=== PATIENT | female | born 1975 | race Caucasian/White ===

== ENCOUNTER → 2017-12-27 15:03 | Outpatient (CLI) | payer OTHER, SELFPAY ==
--- NOTE | 2017-12-27 | DI.MG.S_ITS ---
BILATERAL DIGITAL SCREENING MAMMOGRAM 3D/2D WITH CAD: 12/27/2017 CLINICAL: Routine screening. Family history of breast cancer. Comparison is made [facility]. The tissue of both breasts is heterogeneously dense. This may lower the sensitivity of mammography. Current study was also evaluated with a Computer Aided Detection (CAD) system. No significant masses, calcifications, or other findings are seen in either breast. There has been no significant interval change. IMPRESSION: NEGATIVE There is no mammographic evidence of malignancy. A 1 year screening mammogram is recommended. This exam was interpreted at Station ID: [id number]. NOTE: For mammograms, a report in lay terms will be sent to the patient. Approximately 15% of breast malignancies will not be visualized mammographically. In the management of a palpable breast mass, a negative mammogram must not discourage biopsy of a clinically suspicious lesion. Electronically Signed By: Lizabeth rahman/kareen:12/27/2017 16:04:06 letter sent: Normal Exam ACR BI-RADS Category 1: Negative [id number]
== END ==
PROVIDERS: Family Provider Family Medicine; PCP Family Medicine; Visit Provider Family Medicine
DX: Z12.31 Encounter for screening mammogram for malignant neoplasm of breast (principal); Z80.3 Family history of malignant neoplasm of breast
CPT/HCPCS: 77063; 77067

== ENCOUNTER → 2018-07-13 15:03 | Outpatient (CLI) | payer OTHER, SELFPAY ==
--- NOTE | 2018-07-13 | DI.US.S_ITS ---
PROCEDURE: US PELVIC COMPLETE INDICATIONS: HEAVY MENSTRUAL BLEEDING TECHNIQUE: Real-time scanning was performed of the pelvic organs, with image documentation. Additional endovaginal scanning was necessary due to incomplete visualization of the adnexal and endometrial structures by transabdominal scanning. COMPARISON: None. FINDINGS: Transabdominal scanning: Limited scanning through the kidneys shows no hydronephrosis. No pathologic free abdominal or pelvic fluid. Endovaginal scanning: Uterus: Uterus is normal in size at 9.6 x 4.5 x 5.5 cm. The endometrium measures 15 mm in combined thickness. Ovaries: Ovaries normal size measuring 3.4 x 2.1 x 2.8 cm on the right and 4.1 x 1.7 x 2.3 cm on the left. Regressing right physiologic cyst measuring 2.4 cm in multiple small follicular cysts are seen bilaterally. IMPRESSION: 1. Endometrial complex upper limits of normal in thickness. 2. Regressing right physiologic cyst and multiple small follicles present. Dictated by: Peter Collier [facility] Interpreted: Bryce Mccullough MD on 07/13/2018 at 16:33 Approved by: Bryce Mccullough M.D. on 07/13/2018 at 17:18
== END ==
PROVIDERS: Family Provider Family Medicine; PCP Family Medicine; Visit Provider Nurse Practitioner Family
DX: N92.0 Excessive and frequent menstruation with regular cycle (principal); N83.02 Follicular cyst of left ovary; N83.01 Follicular cyst of right ovary; N83.291 Other ovarian cyst, right side
CPT/HCPCS: 76830; 76856

== ENCOUNTER → 2018-10-11 13:39 | Outpatient (CLI) | payer OTHER, SELFPAY ==
--- NOTE | 2018-10-11 | DI.US.S_ITS ---
LIMITED ULTRASOUND OF LEFT BREAST: 10/11/2018 CLINICAL: Diffuse left breast pain. Comparison is made to exams dated: 10/11/2018 mammogram, 12/27/2017 mammogram, and 11/20/2016 mammogram - [facility]. Color flow and real-time ultrasound of the left breast 2 o'clock region were performed. Perea scale images of the real-time examination were reviewed. No abnormalities were seen sonographically in the left breast. IMPRESSION: NEGATIVE There is no sonographic evidence of malignancy. Return to annual mammogram screening schedule is recommended. Findings and recommendations were conveyed to the patient at time of exam. This exam was interpreted at Station ID: [id number]. Electronically Signed By: Angela tejada/:10/11/2018 16:28:56 letter sent: Normal Exam Ultrasound BI-RADS: 1 Negative
--- NOTE | 2018-10-11 | DI.MG.S_ITS ---
UNILATERAL LEFT DIGITAL DIAGNOSTIC MAMMOGRAM 3D/2D: 10/11/2018 CLINICAL: Left breast pain. Comparison is made to exams dated: 12/27/2017 mammogram and 11/20/2016 mammogram - [facility]. The tissue of left breast is heterogeneously dense. This may lower the sensitivity of mammography. No significant masses, calcifications, or other findings are seen in the breast. IMPRESSION: INCOMPLETE: NEEDS ADDITIONAL IMAGING EVALUATION There is no abnormality seen in the left breast to correspond with the pain. There is no mammographic evidence of malignancy. Complete evaluation with ultrasound is recommended. This was performed immediately following this exam. This exam was interpreted at Station ID: [id number]. NOTE: For mammograms, a report in lay terms will be sent to the patient. Approximately 15% of breast malignancies will not be visualized mammographically. In the management of a palpable breast mass, a negative mammogram must not discourage biopsy of a clinically suspicious lesion. Electronically Signed By: Angela tejada/:10/11/2018 16:26:40 ACR BI-RADS Category 0: Incomplete [id number]
== END ==
PROVIDERS: Family Provider Family Medicine; PCP Family Medicine; Visit Provider Nurse Practitioner Family
DX: R92.8 Other abnormal and inconclusive findings on diagnostic imaging of breast (principal); N64.4 Mastodynia
CPT/HCPCS: 76642; 77065; G0279

== ENCOUNTER 2018-12-09 12:53 | Emergency (ER) | payer OTHER, SELFPAY ==
[2018-12-09 13:00] VITALS: BP 172/83; PULSE 73; RESP 11; TEMP 36.7; O2SAT 100
--- NOTE | 2018-12-09 13:04 | ED_ITS ---
HPI - Arrhythmia/Palpitations General Chief Complaint: Chest Pain Stated Complaint: heart racing, blood pressure high Time Seen by Provider: 12/09/18 13:04 Source: patient and family ( and patient's) Mode of arrival: ambulatory Limitations: no limitations History of Present Illness HPI narrative: 43-year-old female comes emergency with complaint of fast heart beat. Patient states she was sitting on the couch, eating nachos and watching TV laying back. She felt like her heart was pounding in her chest like it would almost come out of her chest. She felt lightheaded like the room was spinning and felt cold and clammy. This lasted for a couple minutes she felt like she was almost going to pass out but she did not. Afterwards he felt sort of tired and a little bit woozy. She felt nauseated but did not have any vomiting. She denies any issues with bowel, but no issues with urination. She denies any shortness of breath, no swelling in her lower extremities. She has not had similar symptoms in the past. Patient checked her blood pressure 3 times at she was little hypertensive in the 170s range around 100 diastolic. She does have a history of asthma, rosacea, and eczema. Also states she has been diagnosed with rheumatoid arthritis but does not take medications. She states she had a lot of allergy she has had sinus surgeries and tubal ligation. Denies tobacco, 1 drink of alcohol daily none today, no illicit. Her dad has had an ablation for dysrhythmia and is on medications for atrial fibrillation. Her mom recently had a Holter and was told she had a lot of PVCs. Related Data Home Medications Medication Instructions Recorded Confirmed albuterol sulfate #0 08/19/10 cetirizine 10 mg PO Q DAY #0 10/19/16 etanercept [Enbrel SureClick] 50 mg SQ #0 10/19/16 folic acid 1 mg PO QDAY #0 10/19/16 methotrexate sodium 10 mg PO QWEEK #0 10/19/16 fluticasone propion-salmeterol 1 puff INHALATION DIRECTED 12/09/18 12/09/18 Allergies Allergy/AdvReac Type Severity Reaction Status Date / Time Cefaclor Allergy Severe STOP Uncoded 12/09/18 13:06 BREATHING, I SWELL UP NUTS Allergy Unknown Uncoded 12/09/18 13:06 SEAFOOD Allergy Unknown Uncoded 12/09/18 13:06 Review of Systems Review of Systems ROS Unobtainable: All systems reviewed & are unremarkable except as noted in HPI and below Constitutional Denies chills, Denies fever(s), Denies lethargy and Denies weakness Eyes Denies change in vision Cardiovascular Denies chest pain, Reports diaphoresis, Denies syncope, Reports rapid heart rate, Denies edema, Denies irregular heart rhythm, Reports lightheadedness, Reports palpitations, Denies dyspnea, Denies dyspnea on exertion and Denies orthopnea Respiratory Denies change in phlegm color, Denies chest congestion, Denies cough, Denies dyspnea, Denies dyspnea on exertion and Denies wheezing Gastrointestinal Gastrointestinal: Denies abdominal pain, Denies change in bowel habits, Denies diarrhea, Reports nausea and Denies vomiting Genitourinary Denies hematuria, Denies urinary frequency, Denies dysuria, Denies flank pain, Denies urinary incontinence and Denies urinary urgency Neurologic Denies syncope and Denies weakness Endocrine Reports palpitations Allergic/Immunologic Denies wheezing FOR[facility]LY [facility] Medical History (Updated 12/09/18 @ 13:25 by Parisa Lanza DO) Asthma (Chronic) Eczema (Chronic) Rosacea (Chronic) Surgical History (Updated 12/09/18 @ 13:23 by Parisa Lanza DO) History of sinus surgery (Chronic) Family History (Updated 12/09/18 @ 13:24 by Parisa Lanza DO) Father Atrial fibrillation Mother PVC (premature ventricular contraction) Social History (Updated 12/09/18 @ 13:23 by Parisa Lanza DO) marital status: Smoking Status: Never smoker alcohol intake: current substance use type: does not use Family History (Updated 12/09/18 @ 13:24 by Parisa Lanza DO) Father Atrial fibrillation Mother PVC (premature ventricular contraction) Social History (Updated 12/09/18 @ 13:23 by Parisa Lanza DO) marital status: Smoking Status: Never smoker alcohol intake: current substance use type: does not use Exam Narrative Exam Narrative: GENERAL: Alert and oriented x three, well-nourished, well- appearing female in no acute distress. Patient ambulated into the department into the room. HEENT: Head normocephalic, atraumatic, EOMI, pupils reactive, face symmetric, moist mucous membranes NECK: Supple, full range of motion CARDIOVASCULAR: Regular rate and rhythm without murmurs, rubs or gallops. No JVD. No edema bilateral lower extremities. RESPIRATORY: Breath sounds equal bilaterally, no wheezes rales or rhonchi. ABDOMEN: Soft, nontender. Normoactive bowel sounds all 4 quadrants. No guarding or rebound, rigidity, no mass : No CVA tenderness EXTREMITIES: Normal range of motion, no clubbing or edema. Neurovascularly intact NEUROLOGICAL: Cranial nerves II through XII grossly intact. Moving all extremities SKIN: Warm, dry, no petechiae, no rashes or lesions. Initial Vital Signs Initial Vital Signs: Vital Signs Temperature 98.1 F 12/09/18 13:00 Pulse Rate 73 12/09/18 13:00 Respiratory Rate 11 L 12/09/18 13:00 Blood Pressure 172/83 H 12/09/18 13:00 Pulse Oximetry 100 12/09/18 13:00 Course Orders Ordered: ED Orders 12/09/18 13:09 XR chest 1V Stat 12/09/18 13:25 Basic Metabolic Panel Stat Complete Blood Count AUTO DIFF Stat Magnesium Stat Thyroid Stimulating Hormone Stat Troponin & CK Cardiac Panel Stat 12/09/18 13:45 Partial Thromboplastin Time Stat Prothrombin Time INR Stat 12/09/18 14:46 Urine Drug Screen, Rapid Stat Discontinued Medications Sodium Chloride (Normal Saline 0.9%) 1,000 mls @ 1,000 mls/hr IV BOLUS ONE Stop: 12/09/18 14:08 Last Infusion: 12/09/18 14:57 Dose: 0 mls/hr Admin: 12/09/18 13:42 Dose: 1,000 mls/hr Vital Signs - 8 hr 12/09/18 13:00 12/09/18 14:57 12/09/18 15:03 Temperature 98.1 F Pulse Rate 73 85 68 Respiratory Rate 11 L 16 Blood Pressure 172/83 H 163/83 H Blood Pressure [Left Arm] 163/83 H Pulse Oximetry 100 98 99 MDM - Arrhythmia/Palpitations Lab Data Attestation: I reviewed the patient's lab results. Result diagrams: 12/09/18 13:25 12/09/18 13:25 Lab Results 12/09/18 12/09/18 12/09/18 Range/Units 13:25 13:25 13:25 WBC 9.0 (4.5-11.0) X10^3/uL RBC 4.43 (4.0-5.2) X10^6/uL Hgb 14.1 (12.0-16.0) g/dL Hct 40.1 (36-46) % MCV 90.5 (80-100) fL MCH 31.8 (26-34) PG MCHC 35.1 (30-36) % RDW 13.3 (11.6-14.8) % Plt Count 281 (150-400) X10^3/uL Neut % (Auto) 71.7 (50-75) % Lymph % (Auto) 14.9 L (25-40) % Bonner % (Auto) 7.0 (3-14) % Eos % (Auto) 5.8 H (2-4) % Baso % (Auto) 0.6 (0-2) % Neut # (Auto) 6500 (6095-6327) /uL Lymph # (Auto) 1300 (1640-8082) /uL Bonner # (Auto) 600 (0-900) /uL Eos # (Auto) 500 H (0-450) /uL Baso # (Auto) 100 (0-100) /uL PT (10.1-12.7) SECONDS INR (0.9-1.3) APTT (26.4-36.2) SECONDS Sodium 139 (137-145) mmol/L Potassium 3.8 (3.4-5.1) mmol/L Chloride 101 (98-107) mmol/L Carbon Dioxide 27 (22-32) mmol/L BUN 11 (7-17) mg/dL Creatinine 0.80 (0.52-1.04) mg/dL Estimated GFR > 60.0 (>60) mL/min BUN/Creatinine Ratio 13.8 (6-22) Glucose 172 H (70-100) mg/dL Calcium 9.4 (8.4-10.2) mg/dL Magnesium 2.0 (1.6-2.3) mg/dL Total Creatine Kinase 79 (30-135) U/L CK-MB (CK-2) TNP CK-MB (CK-2) Rel Index TNP Troponin I < 0.012 (0.01-0.034) ng/mL TSH 1.43 (0.47-4.68) uIU/mL Urine Opiates Screen (Negative) Ur Oxycodone Screen (Negative) Urine Methadone Screen (Negative) Ur Barbiturates Screen (Negative) U Tricyclic Antidepress (Negative) Ur Phencyclidine Scrn (Negative) Ur Amphetamines Screen (Negative) U Methamphetamines Scrn (Negative) Ur MDMA Scrn (Ecstasy) (Negative) U Benzodiazepines Scrn (Negative) Urine Cocaine Screen (Negative) U Marijuana (THC) Screen (Negative) 12/09/18 12/09/18 Range/Units 13:45 14:46 WBC (4.5-11.0) X10^3/uL RBC (4.0-5.2) X10^6/uL Hgb (12.0-16.0) g/dL Hct (36-46) % MCV (80-100) fL MCH (26-34) PG MCHC (30-36) % RDW (11.6-14.8) % Plt Count (150-400) X10^3/uL Neut % (Auto) (50-75) % Lymph % (Auto) (25-40) % Bonner % (Auto) (3-14) % Eos % (Auto) (2-4) % Baso % (Auto) (0-2) % Neut # (Auto) (7885-1510) /uL Lymph # (Auto) (9748-0326) /uL Bonner # (Auto) (0-900) /uL Eos # (Auto) (0-450) /uL Baso # (Auto) (0-100) /uL PT 10.8 (10.1-12.7) SECONDS INR 0.9 (0.9-1.3) APTT 35 (26.4-36.2) SECONDS Sodium (137-145) mmol/L Potassium (3.4-5.1) mmol/L Chloride (98-107) mmol/L Carbon Dioxide (22-32) mmol/L BUN (7-17) mg/dL Creatinine (0.52-1.04) mg/dL Estimated GFR (>60) mL/min BUN/Creatinine Ratio (6-22) Glucose (70-100) mg/dL Calcium (8.4-10.2) mg/dL Magnesium (1.6-2.3) mg/dL Total Creatine Kinase (30-135) U/L CK-MB (CK-2) CK-MB (CK-2) Rel Index Troponin I (0.01-0.034) ng/mL TSH (0.47-4.68) uIU/mL Urine Opiates Screen Negative (Negative) Ur Oxycodone Screen Negative (Negative) Urine Methadone Screen Negative (Negative) Ur Barbiturates Screen Negative (Negative) U Tricyclic Antidepress Negative (Negative) Ur Phencyclidine Scrn Negative (Negative) Ur Amphetamines Screen Negative (Negative) U Methamphetamines Scrn Negative (Negative) Ur MDMA Scrn (Ecstasy) Negative (Negative) U Benzodiazepines Scrn Negative (Negative) Urine Cocaine Screen Negative (Negative) U Marijuana (THC) Screen Negative (Negative) Point of Care Testing Test Results Negative Urine Dip Bedside Urine Glucose 100 mg/dl Bedside Urine Bilirubin - Negative Bedside Urine Ketone - Negative Urine Specific [place] 1.010 Bedside Urine Occult Blood +++ Bedside Urine pH 6.0 Bedside Urine Protein - Negative Bedside Urine Urobilinogen - Negative Bedside Urine Nitrite - Negative Imaging Data Chest x-ray: Radiologist's impression: [address] [id number] XRay Report Signed Patient: Eva Salinas [facility]#: [id number] : 1975Acct:[id number] Age/Sex: 43 / FDate of Service: 12/09/18 Loc: ED Accession Number: [id number] Procedure: XR chest 1V Ordering Provider: Parisa Lanza D.O. PROCEDURE: XR CHEST 1V INDICATIONS: fast heart beat, high bp TECHNIQUE: One view of the chest was acquired. COMPARISON: [facility], , CHEST 2 VIEW, 08/08/2012, 16:48. FINDINGS: Surgical changes and devices: None. Lungs and pleura: Lungs are clear. No pleural effusions or pneumothorax. Mediastinum: Mediastinal contours appear normal. Heart size is normal. Bones and chest wall: No suspicious bony lesions. Overlying soft tissues appear unremarkable. IMPRESSION: Stable chest. No acute cardiopulmonary process is evident. Dictated by: Vladimir Rodriguez M.D. on 12/09/2018 at 12:57 Approved by: Vladimir Rodriguez M.D. on 12/09/2018 at 12:59 ECG Data Attestation: I personally reviewed and interpreted this ECG as follows: Prior ECG tracings: not available for review Interpretation: Sinus a rate of 76 NE 164 QRS of 114 and QTC of 443. No ST changes appreciated patient does appear to have incomplete right bundle branch block MDM Narrative Medical decision making narrative: Patient had episode of elevated heart rate per history. No signs of cardiac arrhythmias here, lab work does not show any abnormalities that are suspicious. Patient's chest x-ray does not show any major changes. She is little hypertensive but she has been normotensive in the past. We discussed she can keep a diary and follow up with her physician. They can talk about doing a Holter monitor ZIO patch and discuss if she needs blood pressure medications. Patient feels comfortable with this plan she does have a significant history with both parent having some cardiac arrhythmia. Discharge Plan Departure Patient Disposition: Home Clinical Impression: Palpitations Discharge Date/Time: 12/09/18 15:04 Interventions: ED Discharge Assessment Last Done: 12/09/18 15:03 Instructions: DI for Palpitations Activity Restrictions/Additional Instructions: Follow-up with your primary care physician in the next 2-3 days for recheck call for an appointment on Wednesday. Discussed with your physician if a Holter monitor would be appropriate. You may continue home medications as prescribed. Return to the emergency department for new or worsening symptoms Return to the emergency department for new or worsening symptoms, fevers greater 100.4 F, passing out, prolonged episodes of palpitations, lightheadedness, sweating, chest pain or shortness of breath, nausea or vomiting, new swelling in her lower extremities or other new or concerning symptoms. Prescriptions: No Action albuterol sulfate 2.5 MG/3 ML solution for nebulization Qty: 0 RF: 0 methotrexate sodium 2.5 MG tablet 10 mg PO QWEEK Qty: 0 RF: 0 folic acid 1 MG tablet 1 mg PO QDAY Qty: 0 RF: 0 etanercept [Enbrel SureClick] 50 MG/1 ML pen injector 50 mg SQ Qty: 0 RF: 0 cetirizine 10 MG tablet 10 mg PO Q DAY Qty: 0 RF: 0 fluticasone propion-salmeterol 500-50 mcg/dose blister with device 1 puff inhalation DIRECTED RF: 0 Referrals: Thierno Flores MD [Primary Care Provider] -
--- NOTE | 2018-12-09 13:07 | PC.NURSE ---
Geraldo reports sudden onset of racing heart, flushed and felt like I was going to pass out Patient states it lasted about five minutes. Left her feeling tired. Patient Denies chest pain or SOB at this time.
--- NOTE | 2018-12-09 13:09 | DI.RAD.S_ITS ---
PROCEDURE: XR CHEST 1V INDICATIONS: fast heart beat, high bp TECHNIQUE: One view of the chest was acquired. COMPARISON: [facility], , CHEST 2 VIEW, 08/08/2012, 16:48. FINDINGS: Surgical changes and devices: None. Lungs and pleura: Lungs are clear. No pleural effusions or pneumothorax. Mediastinum: Mediastinal contours appear normal. Heart size is normal. Bones and chest wall: No suspicious bony lesions. Overlying soft tissues appear unremarkable. IMPRESSION: Stable chest. No acute cardiopulmonary process is evident. Dictated by: Vladimir Rodriguez M.D. on 12/09/2018 at 12:57 Approved by: Vladimir Rodriguez M.D. on 12/09/2018 at 12:59
[2018-12-09 13:32] LABS: Add Manual Diff / Slide Review NO; Basophils Absolute Auto 100 /uL (0-100); Basophils Percent Auto 0.6 % (0-2); Eosinophils Absolute Auto 500 /uL (0-450); Eosinophils Percent Auto 5.8 % (2-4); Hematocrit 40.1 % (36-46); Hemoglobin 14.1 g/dL (12.0-16.0); Lymphocytes Absolute Auto 1300 /uL (1100-4500); Lymphocytes Percent Auto 14.9 % (25-40); Mean Corpuscular HGB Conc 35.1 % (30-36); Mean Corpuscular Hemoglobin 31.8 PG (26-34); Mean Corpuscular Volume 90.5 fL (80-100); Monocytes Absolute Auto 600 /uL (0-900); Neutrophils Absolute Auto 6500 /uL (1500-7000); Neutrophils Percent Auto 71.7 % (50-75); Platelet Count 281 X10^3/uL (150-400); Red Blood Cell Count 4.43 X10^6/uL (4.0-5.2); Red Cell Distribution Width 13.3 % (11.6-14.8)
[2018-12-09 13:42] LABS: HEMOLYSIS < 15 (0-50); Potassium 3.8 mmol/L (3.4-5.1)
[2018-12-09] MEDS: SODIUM CHLORIDE 0.9% 1,000 ML 1000 ML IV (13:42)
[2018-12-09 13:45] LABS: BUN Creatinine Ratio 13.8 (6-22); Blood Urea Nitrogen 11 mg/dL (7-17); Calcium 9.4 mg/dL (8.4-10.2); Carbon Dioxide 27 mmol/L (22-32); Chloride 101 mmol/L (98-107); Creatine Kinase 79 U/L (30-135); Estimated Glomerular Filt Rate > 60.0 mL/min (>60); Glucose 172 mg/dL (70-100); Sodium 139 mmol/L (137-145)
[2018-12-09 13:56] LABS: Troponin I < 0.012 ng/mL (0.01-0.034)
[2018-12-09 14:00] LABS: INR 0.9 (0.9-1.3); Prothrombin Time 10.8 SECONDS (10.1-12.7)
[2018-12-09 14:03] LABS: PTT Partial Thromboplastin Tim 35 SECONDS (26.4-36.2)
[2018-12-09 14:21] LABS: Thyroid Stimulating Hormone 1.43 uIU/mL (0.47-4.68)
[2018-12-09 14:57] VITALS: BP 163/83; PULSE 85; RESP 16; O2SAT 98
[2018-12-09 15:03] VITALS: BP 163/83; PULSE 68; O2SAT 99
[2018-12-09 15:08] LABS: Urine Amphetamines Negative (Negative); Urine Barbiturates Negative (Negative); Urine Benzodiazepines Negative (Negative); Urine Cocaine Negative (Negative); Urine MDMA Negative (Negative); Urine Methadone Negative (Negative); Urine Methamphetamines Negative (Negative); Urine Morphine/Opi cutoff 2000 Negative (Negative); Urine Oxycodone Negative (Negative); Urine Phencyclidine Negative (Negative); Urine Tetrahydrocannabinol Negative (Negative); Urine Tricyclic Antidepressant Negative (Negative)
== END 2018-12-09 15:04 | disposition home or self-care (01) ==
PROVIDERS: Emergency Provider Emergency Medicine; Family Provider Family Medicine; PCP Family Medicine
DX: R00.2 Palpitations (principal)
CPT/HCPCS: 36415; 36591; 71045; 80048; 80305; 81003; 81025; 82550; 83735; 84443; 84484; 85025; 85610; 85730; 93005; 96360; 99283; 99285

== ENCOUNTER → 2019-01-26 15:07 | Outpatient (CLI) | payer OTHER, SELFPAY ==
--- NOTE | 2019-02-17 16:01 | P.HOLT.S_ITS ---
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 No etiology for palpitations identified on this study
== END ==
PROVIDERS: Family Provider Family Medicine; PCP Family Medicine; Visit Provider Family Medicine
DX: R00.2 Palpitations (principal)
CPT/HCPCS: 0296T; 0298T

== ENCOUNTER 2020-03-07 15:37 | Emergency (ER) | payer OTHER, SELFPAY ==
[2020-03-07 15:40] VITALS: BP 231/112; PULSE 92; RESP 14; TEMP 36.6; O2SAT 99; BMI 31.0
--- NOTE | 2020-03-07 15:59 | DI.CT.S_ITS ---
PROCEDURE: CT HEAD/BRAIN WO CON INDICATIONS: head injury TECHNIQUE: Noncontrast 4.5 mm thick angled axial sections acquired from the foramen magnum to the vertex, with coronal and sagittal reformats. For radiation dose reduction, the following was used: automated exposure control, adjustment of mA and/or kV according to patient size. COMPARISON: [facility], CT, HEAD WITHOUT CONTRAST, 07/10/2013, 15:50. [facility], CT, HEAD WITHOUT CONTRAST, 01/07/2012, 11:29. FINDINGS: Image quality: Excellent. CSF spaces: Basal cisterns are patent. No extra-axial fluid collections. Ventricles are normal in size and shape. Brain: No midline shift. No intracranial masses or hemorrhage. Perea-white matter interface is normal. Skull and face: Calvarium and visualized facial bones are intact, without suspicious lesions. Sinuses: Prior paranasal sinus surgery is seen, with at least right-sided antrectomy. Mild mucosal thickening is seen within the ethmoid air cells. No abnormal fluid is seen within the mastoid air cells. IMPRESSION: No acute intracranial hemorrhage is seen. No acute intracranial process is seen. Paranasal sinus disease and prior paranasal sinus surgery. Dictated by: Charles Sands M.D. on 03/07/2020 at 15:22 Approved by: Charles Sands M.D. on 03/07/2020 at 15:23
[2020-03-07] MEDS: ONDANSETRON 4 MG ODT SL (18:31)
[2020-03-07] MEDS: KETOROLAC 60 MG/2 ML VIAL 30 MG IM (18:32)
[2020-03-07 18:48] VITALS: BP 154/87; PULSE 67; RESP 16; O2SAT 98
--- NOTE | 2020-03-07 19:03 | ED.HEATRA ---
HPI - Head Injury <LEVI Powers - Last Filed: 03/07/20 19:28> General Chief complaint: Head Injury Stated complaint: hit head Wednesday, blurry vision now Time Seen by Provider: 03/07/20 18:08 Source: patient Mode of arrival: Ambulatory Limitations: no limitations History of Present Illness HPI Narrative: The patient is a 44-year-old female nonsmoker with history of asthma who presents with a chief complaint of hitting her head on Wednesday on the chawla of her vehicle. She was helping her older dog get in and out of the car. She denied loss of consciousness, does not take any blood thinners. She has had headaches, blurry vision and nausea off and on. It is worsened by working on the computer. 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 She tried to get in with primary care provider office, though is unable to do so. She denies any numbness or tingling. Related Data Home Medications Medication Instructions Recorded Confirmed albuterol sulfate #0 08/19/10 01/12/19 cetirizine 10 mg PO Q DAY #0 10/19/16 01/12/19 etanercept [Enbrel SureClick] 50 mg SQ #0 10/19/16 01/12/19 folic acid 1 mg PO QDAY #0 10/19/16 01/12/19 methotrexate sodium 10 mg PO QWEEK #0 10/19/16 01/12/19 fluticasone propion-salmeterol 1 puff INHALATION DIRECTED 12/09/18 01/12/19 Previous Rx's Medication Instructions Recorded ketorolac 10 mg PO TID PRN #10 tab 03/07/20 ondansetron 4 mg PO Q6H PRN #14 tab 03/07/20 Allergies Allergy/AdvReac Type Severity Reaction Status Date / Time Cefaclor Allergy Severe STOP Uncoded 03/07/20 15:42 BREATHING, I SWELL UP NUTS Allergy Unknown Uncoded 03/07/20 15:42 SEAFOOD Allergy Unknown Uncoded 03/07/20 15:42 Review of Systems <LEVI Powers - Last Filed: 03/07/20 19:28> Review of Systems Narrative: GENERAL: Denies chills, fatigue, malaise, fever, sweats. HEENT: Denies sinus pain, ear pain, sore throat, difficulty swallowing, dizziness. RESPIRATORY: Denies dyspnea, cough, wheezing, hemoptysis, sputum. CARDIOVASCULAR: Denies chest pain, palpitations, orthopnea, edema, GASTROINTESTINAL: Denies nausea, vomiting, abdominal pain, diarrhea, constipation, melena. : Denies dysuria, frequency, incontinence, hematuria, urinary retention. MUSCULOSKELETAL: denies weakness, joint pain, or bony pain SKIN: Denies rash, skin lesions, or other NEUROLOGIC: See HPI PSYCHIATRIC: No concerning psychosocial issues. 12 point review of systems is negative except for those stated above Patient History <LEVI Powers - Last Filed: 03/07/20 19:28> Medical History Asthma Eczema Rosacea Surgical History History of sinus surgery Family History Father Atrial fibrillation Mother PVC (premature ventricular contraction) Social History marital status: Smoking Status: Never smoker alcohol intake: current substance use type: does not use Smoking Status: Never smoker alcohol intake frequency: holidays/special occasions only Substance Use Type: does not use Exam <LEVI Powers - Last Filed: 03/07/20 19:28> Narrative Exam Narrative: GENERAL: This is a well-nourished, well-developed patient, slightly teary HEAD: Atraumatic. Normocephalic. No temporal or scalp tenderness. EYES: Pupils equal round and reactive. Extraocular motions intact. No scleral icterus. No injection or drainage. ENT: Nose without bleeding, purulent drainage or septal hematoma. Throat without erythema, tonsillar hypertrophy or exudate. Uvula midline. Airway patent. NECK: Trachea midline. No JVD or lymphadenopathy. Supple, nontender, no meningeal signs. CARDIOVASCULAR: Regular rate and rhythm RESPIRATORY: Clear to auscultation. Breath sounds equal bilaterally. No wheezes, rales, or rhonchi. No cough. No increased respiratory effort. No accessory muscle use. GASTROINTESTINAL: Abdomen soft, non-tender, nondistended. No hepato-splenomegaly, or palpable masses. No guarding. EXTREMITIES: No clubbing, cyanosis, or edema. No joint tenderness, effusion, or edema noted. BACK: Nontender without deformity or crepitance. No flank tenderness. NEURO: AOx3. Stable gait. Using all extremities equally. No gross cranial nerve deficit. SKIN: No rash or erythema on visible skin Initial Vital Signs Initial Vital Signs: Vital Signs Temperature 97.9 F 03/07/20 15:40 Pulse Rate 92 H 03/07/20 15:40 Respiratory Rate 14 03/07/20 15:40 Blood Pressure 231/112 H 03/07/20 15:40 Pulse Oximetry 99 03/07/20 15:40 <Kallie Painter DO - Last Filed: 03/08/20 07:25> Initial Vital Signs Initial Vital Signs: Vital Signs Temperature 97.9 F 03/07/20 15:40 Pulse Rate 92 H 03/07/20 15:40 Respiratory Rate 14 03/07/20 15:40 Blood Pressure 231/112 H 03/07/20 15:40 Pulse Oximetry 99 03/07/20 15:40 Scores <LEVI Powers - Last Filed: 03/07/20 19:28> GCS Aleksey coma scale eye opening: Spontaneous Aleksey coma scale verbal response: Orientated [place] coma scale motor response: Obey commands [place] coma scale total score: 15 Nexus Score for C-Spine Focal Neurologic deficit present: No Midline spinal tenderness present: No Altered level of conciousness present: No Intoxication present: No Distracting Injury Present: No Nexus Criteria for C-spine: 0 Course <LEVI Powers - Last Filed: 03/07/20 19:28> Orders Ordered: Discontinued Medications Ketorolac Tromethamine (Ketorolac 60 Mg/2 Ml Vial) 30 mg IM NOW ONE Stop: 03/07/20 18:22 Last Admin: 03/07/20 18:32 Dose: 30 mg Documented by: ENRIQUER Ondansetron HCl (Ondansetron 4 Mg Odt) 4 mg SL NOW ONE Stop: 03/07/20 18:22 Last Admin: 03/07/20 18:31 Dose: 4 mg Documented by: MMINOR Vital Signs Vital signs: Vital Signs - 8 hr 03/07/20 15:40 03/07/20 18:48 03/07/20 19:13 Temperature 97.9 F Pulse Rate 92 H 67 70 Respiratory Rate 14 16 18 Blood Pressure 231/112 H 154/87 H 142/81 H Pulse Oximetry 99 98 96 <Kallie Painter DO - Last Filed: 03/08/20 07:25> Orders Ordered: Discontinued Medications Ketorolac Tromethamine (Ketorolac 60 Mg/2 Ml Vial) 30 mg IM NOW ONE Stop: 03/07/20 18:22 Last Admin: 03/07/20 18:32 Dose: 30 mg Documented by: MMINOR Ondansetron HCl (Ondansetron 4 Mg Odt) 4 mg SL NOW ONE Stop: 03/07/20 18:22 Last Admin: 03/07/20 18:31 Dose: 4 mg Documented by: MMINOR Vital Signs Vital signs: Vital Signs - 8 hr 03/07/20 15:40 03/07/20 18:48 03/07/20 19:13 Temperature 97.9 F Pulse Rate 92 H 67 70 Respiratory Rate 14 16 18 Blood Pressure 231/112 H 154/87 H 142/81 H Pulse Oximetry 99 98 96 MDM - Head Injury <LEVI Powers - Last Filed: 03/07/20 19:28> Imaging Data CT scan - head: Radiologist's Impression: [facility] [address] [place] [id number] Scan ReportSigned Patient: Eva Salinas AMR#: [id number]: 1975Acct:[id number]/Sex: 44 / FDate of Service: 03/07/20Loc: EDAccession Number: [id number] Procedure: CT head/brain wo con Ordering Provider: Kallie Painter D.O. PROCEDURE: CT HEAD/BRAIN WO CON INDICATIONS: head injury TECHNIQUE: Noncontrast 4.5 mm thick angled axial sections acquired from the foramen magnum to the vertex, with coronal and sagittal reformats. For radiation dose reduction, the following was used: automated exposure control, adjustment of mA and/or kV according to patient size. COMPARISON: [facility], CT, HEAD WITHOUT CONTRAST, 07/10/2013, 15:50. [facility], CT, HEAD WITHOUT CONTRAST, 01/07/2012, 11:29. FINDINGS: Image quality: Excellent. CSF spaces: Basal cisterns are patent. No extra-axial fluid collections. Ventricles are normal in size and shape. Brain: No midline shift. No intracranial masses or hemorrhage. Perea-white matter interface is normal. Skull and face: Calvarium and visualized facial bones are intact, without suspicious lesions. Sinuses: Prior paranasal sinus surgery is seen, with at least right-sided antrectomy. Mild mucosal thickening is seen within the ethmoid air cells. No abnormal fluid is seen within the mastoid air cells. IMPRESSION: No acute intracranial hemorrhage is seen. No acute intracranial process is seen. Paranasal sinus disease and prior paranasal sinus surgery. Dictated by: Charles Sands M.D. on 03/07/2020 at 15:22 MDM Narrative Medical decision making narrative: The patient is a 44-year-old female who presents hitting her head several days ago with post concussive symptoms. Her head CT is acute if it for head CT is negative. I believe she is having postconcussive syndrome. She felt much improved after Toradol and Zofran. I discussed at length follow up with primary care provider in the next few days. Discussed brain rest, not using computer for profuse amounts of time, coming back to the ER for acute concerns. Patient was given reap packet. Patient has no questions or concerns upon discharge and states understanding return precautions as well as follow-up care. I did provide a work note. Discharge Plan Departure Patient Disposition: Home Clinical Impression: Post concussive syndrome Concussion without loss of consciousness Qualifiers: Encounter type: initial encounter Qualified Code(s): S06.0X0A - Concussion without loss of consciousness, initial encounter Instructions: DI for Concussion, True or False: A Person With a Serious Head Injury or Concussion Should Be , DI for Postconcussion Syndrome, The Cumulative Effects of Concussions Activity Restrictions/Additional Instructions: Thank you for trusting us with your care today. As discussed, your head CT came back with no acute findings. Please rest over the next few days. I have given you a work note. Please follow-up with primary care provider in the next few days. I have given you 2 prescriptions which is sent to [facility], 1 for nausea and 1 for pain. I have given you a prescription of Toradol. This is an NSAID. Do not combine it with other NSAIDs such as Aleve or ibuprofen. I suggest taking it with some food, as it can irritate your stomach. I have also given a prescription of ondansetron for nausea, be aware that this can be constipating. As discussed please take it easy and rest. Please come back to the emergency department for any acute concerns. Prescriptions: New ondansetron 4 mg tablet,disintegrating 4 mg PO Q6H PRN (Reason: nausea and vomiting) Qty: 14 RF: 0 ketorolac 10 mg tablet 10 mg PO TID PRN (Reason: pain) Qty: 10 RF: 0 No Action albuterol sulfate 2.5 MG/3 ML solution for nebulization Qty: 0 RF: 0 methotrexate sodium 2.5 MG tablet 10 mg PO QWEEK Qty: 0 RF: 0 folic acid 1 MG tablet 1 mg PO QDAY Qty: 0 RF: 0 etanercept [Enbrel SureClick] 50 MG/1 ML pen injector 50 mg SQ Qty: 0 RF: 0 cetirizine 10 MG tablet 10 mg PO Q DAY Qty: 0 RF: 0 fluticasone propion-salmeterol 500-50 mcg/dose blister with device 1 puff inhalation DIRECTED RF: 0 Referrals: [facility] [Outside] Stand Alone Forms: Work Release Note <Kallie Painter DO - Last Filed: 03/08/20 07:25> [facility] ED Attending Terra Attestation: I was immediately available in the department for consultation. Documentation has been reviewed. I agree with assessment and plan.
[2020-03-07 19:13] VITALS: BP 142/81; PULSE 70; RESP 18; O2SAT 96
== END 2020-03-07 19:13 | disposition home or self-care (01) ==
PROVIDERS: Emergency Provider Nurse Practitioner Family; Family Provider Family Medicine
DX: S06.0X0A Concussion without loss of consciousness, initial encounter (principal); H53.8 Other visual disturbances
CPT/HCPCS: 70450; 96372; 99281; 99284; STOP; J1885

== ENCOUNTER → 2020-05-07 16:14 | Outpatient (CLI) | payer OTHER, SELFPAY ==
--- NOTE | 2020-05-07 16:18 | DI.RAD.S_ITS ---
PROCEDURE: XR SHOULDER LT MIN 2V INDICATIONS: UNSPECIFIED LEFT SHOULDER PAIN TECHNIQUE: 3 views of the shoulder were acquired. COMPARISON: None. FINDINGS: Bones: No fractures or dislocations. No suspicious bony lesions. Visualized ribs appear intact. Soft tissues: No suspicious soft tissue calcifications. IMPRESSION: No definite radiographic abnormality. If pain persists with conservative management, consider cross sectional imaging such as CT or MRI for further assessment. Dictated by: [facility] Interpreted: Sofi Nash MD on 05/07/2020 at 16:53 Approved by: Sofi Nash M.D. on 05/07/2020 at 17:05
== END ==
PROVIDERS: Referring Provider Nurse Practitioner Family; Visit Provider Nurse Practitioner Family
DX: M25.512 Pain in left shoulder (principal)
CPT/HCPCS: 73030

== ENCOUNTER → 2021-06-24 15:12 | Outpatient (CLI) | payer OTHER, SELFPAY ==
--- NOTE | 2021-06-24 15:14 | DI.MG.S_ITS ---
BILATERAL DIGITAL SCREENING MAMMOGRAM 3D/2D WITH CAD: 06/24/2021 CLINICAL: Routine screening. Family history of breast cancer. Comparison is made to exams dated: 10/11/2018 mammogram, 12/27/2017 mammogram, and 11/20/2016 mammogram - [facility]. The tissue of both breasts is heterogeneously dense. This may lower the sensitivity of mammography. Current study was also evaluated with a Computer Aided Detection (CAD) system. No significant masses, calcifications, or other findings are seen in either breast. There has been no significant interval change. IMPRESSION: NEGATIVE There is no mammographic evidence of malignancy. A 1 year screening mammogram is recommended. This exam was interpreted at Station ID: [id number]. NOTE: For mammograms, a report in lay terms will be sent to the patient. Approximately 15% of breast malignancies will not be visualized mammographically. In the management of a palpable breast mass, a negative mammogram must not discourage biopsy of a clinically suspicious lesion. Electronically Signed By: Angela tejada/kareen:06/25/2021 08:49:40 letter sent: Normal Exam ACR BI-RADS Category 1: Negative 3341F
== END ==
PROVIDERS: PCP Internal Medicine; Referring Provider Internal Medicine; Visit Provider Internal Medicine
DX: Z12.31 Encounter for screening mammogram for malignant neoplasm of breast (principal); Z80.3 Family history of malignant neoplasm of breast
CPT/HCPCS: 77063; 77067

== ENCOUNTER → 2022-11-11 13:48 | Outpatient (CLI) | payer OTHER, SELFPAY ==
--- NOTE | 2022-11-11 13:49 | DI.MG.S_ITS ---
BILATERAL DIGITAL SCREENING MAMMOGRAM 3D/2D WITH CAD: 11/11/2022 CLINICAL: Routine screening. Family history of breast cancer. Comparison is made to exams dated: 06/24/2021 mammogram, 10/11/2018 mammogram, and 12/27/2017 mammogram - [facility]. Both breasts are heterogeneously dense, which may obscure small masses (category c / 51-75% glandular tissue). Current study was also evaluated with a Computer Aided Detection (CAD) system. No significant masses, calcifications, or other findings are seen in either breast. There has been no significant interval change. IMPRESSION: NEGATIVE There is no mammographic evidence of malignancy. A 1 year screening mammogram is recommended. Based on the Tyrer Cuzick model (a risk assessment model) the patient's lifetime risk is 13.2% and her 10 year risk is 2.6%. According to the ACR, ACS, and NCCN guidelines, an annual breast MRI exam along with mammogram is recommended if the patient's lifetime risk is 20% or greater. This exam was interpreted at Station ID: [id number]. NOTE: For mammograms, a report in lay terms will be sent to the patient. Approximately 15% of breast malignancies will not be visualized mammographically. In the management of a palpable breast mass, a negative mammogram must not discourage biopsy of a clinically suspicious lesion. Electronically Signed By: Jacky tavarez/kareen:11/11/2022 15:15:40 letter sent: Normal Exam ACR BI-RADS Category 1: Negative 3341F
== END ==
PROVIDERS: PCP Internal Medicine; Referring Provider Internal Medicine; Visit Provider Internal Medicine
DX: Z12.31 Encounter for screening mammogram for malignant neoplasm of breast (principal); Z80.3 Family history of malignant neoplasm of breast
CPT/HCPCS: 77063; 77067

== ENCOUNTER → 2023-12-01 14:09 | Outpatient (CLI) | payer OTHER, SELFPAY ==
--- NOTE | 2023-12-01 14:12 | DI.MG.S_ITS ---
BILATERAL DIGITAL SCREENING MAMMOGRAM 3D/2D WITH CAD: 12/01/2023 CLINICAL: Routine screening. Family history of breast cancer. Comparison is made to exams dated: 11/11/2022 mammogram, 06/24/2021 mammogram, and 12/27/2017 mammogram - [facility]. Both breasts are heterogeneously dense, which may obscure small masses (category c / 51-75% glandular tissue). Current study was also evaluated with a Computer Aided Detection (CAD) system. No significant masses, calcifications, or other findings are seen in either breast. There has been no significant interval change. IMPRESSION: NEGATIVE There is no mammographic evidence of malignancy. A 1 year screening mammogram is recommended. Based on the Tyrer Cuzick model (a risk assessment model) the patient's lifetime risk is 13.1% and her 10 year risk is 2.7%. According to the ACR, ACS, and NCCN guidelines, an annual breast MRI exam along with mammogram is recommended if the patient's lifetime risk is 20% or greater. This exam was interpreted at Station ID: [id number]. NOTE: For mammograms, a report in lay terms will be sent to the patient. Approximately 15% of breast malignancies will not be visualized mammographically. In the management of a palpable breast mass, a negative mammogram must not discourage biopsy of a clinically suspicious lesion. Electronically Signed By: Anglea tejada/kareen:12/01/2023 17:03:08 letter sent: Normal Exam ACR BI-RADS Category 1: Negative 3341F
== END ==
LOC: MAMMO 14:11
PROVIDERS: PCP Internal Medicine; Referring Provider Internal Medicine; Visit Provider Internal Medicine
DX: Z12.31 Encounter for screening mammogram for malignant neoplasm of breast (principal); Z80.3 Family history of malignant neoplasm of breast; R92.333 Mammographic heterogeneous density, bilateral breasts
CPT/HCPCS: 77063; 77067

== ENCOUNTER → 2023-12-29 15:11 | Outpatient (CLI) | payer OTHER, SELFPAY ==
--- NOTE | 2023-12-29 | DI.RAD.S_ITS ---
PROCEDURE: XR FOOT LT MIN 3V INDICATIONS: left foot pain TECHNIQUE: 3 views of the foot were acquired. COMPARISON: None. FINDINGS: Bones: There are no focal osseous abnormalities. Mild pes planus noted. Joints: The joint spaces are normal in width and alignment without arthritic change. Soft tissues: No soft tissue abnormality. IMPRESSION: Mild pes planus Dictated by: Jairo Erazo M.D. on 12/30/2023 at 13:29 Approved by: Jairo Erazo M.D. on 12/30/2023 at 13:29
== END ==
PROVIDERS: PCP Internal Medicine; Referring Provider Internal Medicine; Visit Provider Internal Medicine
DX: M21.42 Flat foot [pes planus] (acquired), left foot (principal); M79.672 Pain in left foot
CPT/HCPCS: 73630

== ENCOUNTER → 2025-01-04 15:19 | Outpatient (CLI) | payer OTHER, SELFPAY ==
--- NOTE | 2025-01-04 15:23 | EKG_ITS ---
[place] [id number] [address] [place] [id number] Test Date: 2025-01-04 Pat Name: Eva Villalba Department: [facility] Room: Gender: Female Eap Specialist: HEATHER : 1975 Requested By: Order Number: [id number] Reading MD: Jairo Parks MD Measurements Intervals Vernon Rate: 69 P: 77 FL: 166 QRS: 24 QRSD: 98 T: 55 QT: 402 QTc: 430 Interpretive Statements Normal sinus rhythm Possible Left atrial enlargement Incomplete right bundle branch block Septal infarct , age undetermined NO SIGNIFICANT CHANGE FROM PRIOR TRACING Electronically Signed On 01-05-2025 7:37:07 PDT by Jairo Parks MD
== END ==
PROVIDERS: PCP Internal Medicine; Referring Provider Internal Medicine; Visit Provider Internal Medicine Gastroenterology
DX: G89.18 Other acute postprocedural pain (principal)
CPT/HCPCS: 93005

== ENCOUNTER → 2025-01-08 15:49 | Outpatient (CLI) | payer OTHER, SELFPAY ==
[2025-01-08 16:40] LABS: Add Manual Diff / Slide Review NO; Hematocrit 37.7 % (36-46); Hemoglobin 13.3 g/dL (12.0-16.0); Lymphocytes Absolute Auto 2000 /uL (1100-4500); Mean Corpuscular HGB Conc 35.2 % (30-36); Mean Corpuscular Hemoglobin 32.5 PG (26-34); Mean Corpuscular Volume 92.3 fL (80-100); Platelet Count 300 X10^3/uL (150-400)
[2025-01-08 17:12] LABS: Alanine Aminotransferase 45 IU/L (<35); Albumin 4.4 g/dL (3.5-5.0); Albumin Globulin Ratio 1.5 (1.0-2.8); Alkaline Phosphatase 70 U/L (38-126); Blood Urea Nitrogen 20 mg/dL (7-17); Calcium 9.8 mg/dL (8.4-10.2); Carbon Dioxide 27 mmol/L (22-32); Chloride 103 mmol/L (98-107); Estimated Glomerular Filt Rate > 60 mL/min (>60); Globulin 3.0 g/dL (1.7-4.1); Glucose 88 mg/dL (70-99); HEMOLYSIS < 15 (0-50); Potassium 4.5 mmol/L (3.4-5.1); Sodium 139 mmol/L (137-145); Total Protein 7.4 g/dL (6.3-8.2)
[2025-01-08 17:31] LABS: Follicle Stimulating Hormone 62.4 mIU/mL; Progesterone, Total 7.30 ng/mL; Vitamin D 25 Hydroxy (D3) 81.1 ng/mL (30.0-100.0)
[2025-01-08 17:46] LABS: Estradiol, Total 36.3 pg/mL
[2025-01-11 07:09] LABS: Insulin Level Total 6.5 uIU/mL (2.6-24.9)
== END ==
PROVIDERS: PCP Internal Medicine; Referring Provider Specialist; Visit Provider Specialist
DX: L65.9 Nonscarring hair loss, unspecified (principal); M06.9 Rheumatoid arthritis, unspecified; N95.0 Postmenopausal bleeding; N95.9 Unspecified menopausal and perimenopausal disorder; Z51.81 Encounter for therapeutic drug level monitoring
CPT/HCPCS: 36415; 80053; 82306; 82670; 83001; 83525; 84144; 84403; 85025

== ENCOUNTER 2025-01-29 13:13 | Day surgery (SDC) | payer OTHER, SELFPAY ==
[2025-01-29] MEDS: LACTATED RINGERS 1,000 ML 42 ML IV (13:27)
[2025-01-29 13:31] VITALS: BP 151/95; PULSE 90; RESP 16; TEMP 36.8; O2SAT 100
--- NOTE | 2025-01-29 13:33 | P.HP_ITS ---
History of Present Illness History of Present Illness Date Patient Seen: 01/29/25 Chief complaint: Colonoscopy [facility] Medical History Asthma Eczema Rosacea Surgical History History of sinus surgery Family History Father Atrial fibrillation Mother PVC (premature ventricular contraction) Social History marital status: alcohol intake: current substance use type: does not use Meds Home Medications and Allergies Home Medications ?Medication ?Instructions ?Recorded ?Confirmed ?Type albuterol sulfate 2.5 mg/3 mL ##0 08/19/10 01/12/19 Hi story (0.083 %) solution for nebulization cetirizine 10 mg tablet 10 mg PO Q DAY ##0 10/19/16 01/29/25 History folic acid 1 mg tablet 1 mg PO QDAY ##0 10/19/16 History methotrexate sodium 2.5 mg tablet 10 mg PO QWEEK ##0 0 10/19/16 01/29/25 History fluticasone 500 mcg-salmeterol 50 1 puff inhalation DIRECTED 12/09/18 01/29/25 History mcg/dose blistr powdr for inhalation ketorolac 10 mg tablet 10 mg PO TID PRN pain #10 ta bs 03/07/20 01/29/25 Rx Allergies Allergy/AdvReac Type Severity Reaction Status Date / Time Cefaclor Allergy Severe STOP Uncoded 03/07/20 15:42 BREATHING, I SWELL UP NUTS Allergy Unknown Uncoded 03/07/20 15:42 SEAFOOD Allergy Unknown Uncoded 03/07/20 15:42 Exam Narrative Exam Narrative: Oropharynx free of lesions Chest clear to auscultation percussion Cardiac exam reveals no S3 or murmur Assessment & Plan Assessment & Plan narrative: For screening colonoscopy. Risks, benefits, alternatives have been explained. Time-Based Coding :: [TOTAL MINUTES] spent with patient and on the chart (including review of chart, obtaining history, exam, reviewing outside data, placing orders, documenting exam and treatment plan, and counseling patient) on [DATE]. PROFEE Information Systems Analyst Document charge(s): No
--- NOTE | 2025-01-29 13:35 | PM.OP.COLON ---
Operative Date/Time/Diagnoses Date of procedure: 01/29/25 Time of procedure: 14:25 Pre-op diagnosis: See indication and findings Post-op diagnosis: same Procedure & Clinicians Study performed: Colonoscopy Same procedure(s) as scheduled: Yes Indications: For screening colonoscopy Surgeon: Prashanth Centeno Anesthesia Type: Other Procedure Notes Procedure in detail: After informed consent was obtained the patient was placed in left lateral decubitus position. The video colonoscope was placed in the rectum slowly advanced cecum. Preparation was good. On slow withdrawal mucosa was carefully examined. The scope was removed. The patient tolerated procedure well. Blood loss none Complications none Sedation mac Findings 1. Tortuous colon but otherwise negative colonoscopy to cecum Patient should have follow-up colonoscopy in 10 years.
[2025-01-29 14:23] VITALS: BP 100/59; PULSE 92; RESP 19; TEMP 36.3; O2SAT 95
[2025-01-29 14:25] VITALS: BP 99/59; PULSE 86; RESP 15; O2SAT 95
[2025-01-29 14:30] VITALS: BP 100/59; PULSE 77; RESP 15; O2SAT 97
[2025-01-29 14:37] VITALS: BP 113/78; PULSE 92; RESP 24; TEMP 36.4; O2SAT 100
[2025-01-29 14:40] VITALS: BP 126/76; PULSE 79; RESP 24; O2SAT 100
== END 2025-01-29 15:15 | disposition home or self-care (01) ==
PROVIDERS: PCP Internal Medicine; Referring Provider Internal Medicine Gastroenterology; Visit Provider Internal Medicine Gastroenterology
PROC: 0DJD8ZZ Inspection of Lower Intestinal Tract, Via Natural or Artificial Opening Endoscopic (ICD-10-PCS; CPT 45378; principal; 2025-01-29 14:30)
DX: Z12.11 Encounter for screening for malignant neoplasm of colon (principal)
CPT/HCPCS: 45378; J2405; J2704; J7120

== ENCOUNTER → 2025-03-06 12:26 | Outpatient (CLI) | payer OTHER, SELFPAY ==
--- NOTE | 2025-03-06 12:31 | DI.MG.S_ITS ---
MM diagnostic mammo BI, US breast LT limited: 03/06/2025 BI-RADS: 1 CLINICAL: 49-year old female for bilateral diagnostic mammogram and left diagnostic breast ultrasound. Tyrer-Cuzick lifetime risk of 8.5%. No personal or first- degree family history of breast cancer. Current reported family history of breast cancer: maternal aunt. The patient reports a previous painful palpable abnormality (1 month) in the left breast. The patient no longer feels the palpable abnormality on today's exam but is able to remember the location of the previous symptoms. PRIOR EXAMS 12/01/2023, 11/11/2022, 06/24/2021, 10/11/2018, 12/27/2017. MAMMOGRAPHY TECHNIQUE: 2D and 3D (tomosynthesis) digital mammographic views obtained, with additional images as needed for full coverage. Current study was also evaluated with a Computer Aided Detection (CAD) system. ULTRASOUND TECHNIQUE Real-time mack scale imaging of the area of clinical interest was performed with image documentation. TARGETED Left Breast Ultrasound: Real-time ultrasound exam was performed focused to area of clinical and/or imaging concern. DENSITY Right: C. The breast is heterogeneously dense, which may obscure small masses. MAMMOGRAPHY FINDINGS Right: No suspicious mass, asymmetry, microcalcification, or other abnormality seen. Left (finding-1): Upper Outer Quadrant, Middle depth: A skin marker was placed in the area of concern, and no mammographic abnormalities are identified or to account for concern by the patient. No suspicious mass, asymmetry, microcalcification, or other abnormality seen. Left: An implanted biomedical instrument technician obscures a portion of the breast/axilla. ULTRASOUND FINDINGS Left (finding-1): Upper Outer at 2:00, 4 cm from nipple: Underlying the surface marker, there is no sonographic abnormality to account for concern by the patient. IMPRESSION: * No evidence of malignancy. RECOMMENDATIONS Left * Clinical follow-up is recommended, and further management of palpable abnormalities or other focal signs or symptoms should be based on the results of clinical evaluation. If palpable abnormality or other concerning symptom persists or progresses, further clinical evaluation should be considered. Bilateral * Annual screening mammography. COMMENTS: Findings and recommendations were conveyed to the patient during today's evaluation. OVERALL ASSESSMENT CATEGORY BI-RADS-1: Negative. The [employer] recommends annual screening mammography beginning at age 40 for women with average risk of breast cancer. ELECTRONICALLY SIGNED: Sunshnie Vaz M.D. on 03/06/2025 at 03:13:02 PM PT Interpreting Station ID: [id number]
== END ==
LOC: MAMMO 12:28
PROVIDERS: PCP Family Medicine; Referring Provider Family Medicine; Visit Provider Family Medicine
DX: N64.4 Mastodynia (principal); R92.331 Mammographic heterogeneous density, right breast; Z80.3 Family history of malignant neoplasm of breast; Z96.9 Presence of functional implant, unspecified
CPT/HCPCS: 76642; 77066; G0279

== ENCOUNTER 2025-04-03 07:59 | Emergency (ER) | payer OTHER, SELFPAY ==
[2025-04-03] VITALS (9 sets, daily range): BP systolic 141–154; BP diastolic 70–87; PULSE 60–73; RESP 10–34; TEMP 37; O2SAT 97–100; BMI 23.6
--- NOTE | 2025-04-03 07:58 | DI.RAD.S_ITS ---
PROCEDURE: XR CHEST 1V INDICATIONS: Palpitations TECHNIQUE: One view of the chest was acquired. COMPARISON: [facility], CR, XR CHEST 1V, 12/09/2018, 13:29. FINDINGS: Surgical changes and devices: Cardiac monitoring device. Lungs and pleura: Lungs are clear. No pleural effusions or pneumothorax. Mediastinum: Mediastinal contours appear normal. Heart size is normal. Bones and chest wall: No suspicious bony lesions. Overlying soft tissues appear unremarkable. IMPRESSION: No acute pulmonary process. Dictated by: Sofi Nash M.D. on 04/03/2025 at 8:30 Approved by: Sofi Nash M.D. on 04/03/2025 at 8:30
--- NOTE | 2025-04-03 08:05 | ED_ITS ---
HPI - Chest Pain General Chief Complaint: Chest Pain Stated Complaint: Dizzy Time Seen by Provider: 04/03/25 08:14 History of Present Illness HPI narrative: Patient has history of loop recorder that knees battery replaced next May. It has been in in operative for the past 6 months. Patient had history of 2nd degree heart block, cardiac ablation 2 or [address] Perkins, EP Cardiology [facility]. Has been doing well. She is on blood pressure medication. 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 No chest pain no palpitations no dyspnea no diaphoresis. No nausea. No syncope. She states it feels similar to when she had her arrhythmias. Her Apple watch recording shows sinus rhythm. Patient has no symptoms at this time. Blood sugar by EMS 95 Related Data Home Medications ?Medication ?Instructions ?Recorded ?Confirmed albuterol sulfate 2.5 mg/3 mL ##0 08/19/10 01/12/19 (0.083 %) solution for nebulization cetirizine 10 mg tablet 10 mg PO Q DAY ##0 10/19/16 01/29/25 folic acid 1 mg tablet 1 mg PO QDAY ##0 10/19/16 methotrexate sodium 2.5 mg tablet 10 mg PO QWEEK ##0 0 10/19/16 01/29/25 fluticasone 500 mcg-salmeterol 50 1 puff inhalation DIRECTED 12/09/18 01/29/25 mcg/dose blistr powdr for inhalation Previous Rx's ?Medication ?Instructions ?Recorded ketorolac 10 mg tablet 10 mg PO TID PRN pain #10 ta bs 03/07/20 Allergies Allergy/AdvReac Type Severity Reaction Status Date / Time Cefaclor Allergy Severe STOP Uncoded 04/03/25 08:14 BREATHING, I SWELL UP NUTS Allergy Unknown Uncoded 04/03/25 08:14 SEAFOOD Allergy Unknown Uncoded 04/03/25 08:14 Review of Systems Review of Systems Narrative: GENERAL: Negative chills, fatigue, malaise, fever, sweats. HEENT: Negative sinus pain, ear pain, sore throat RESPIRATORY: Negative dyspnea, cough CARDIOVASCULAR: Negative chest pain, positive palpitations GASTROINTESTINAL: Negative vomiting, nausea, abdominal pain : Negative dysuria, frequency, hematuria MUSCULOSKELETAL: Negative muscle or bony pain SKIN: Negative rash, skin lesions NEUROLOGIC: Negative weakness, numbness, positive dizzy ROS Unobtainable: All systems reviewed & are unremarkable except as noted in HPI and below Patient History Medical History Asthma Eczema Rosacea Surgical History History of sinus surgery Family History Father Atrial fibrillation Mother PVC (premature ventricular contraction) Social History marital status: Smoking Status: Never smoker alcohol intake: current substance use type: does not use alcohol intake frequency: holidays/special occasions only Exam Narrative Exam Narrative: GENERAL: in no distress, not toxic not dyspneic HEAD: Normocephalic. EYES: Pupils equal round ENT: Mucous membranes moist. NECK: Trachea midline. CARDIOVASCULAR: Regular rate and rhythm RESPIRATORY: Clear to auscultation. Breath sounds equal bilaterally. No wheezes, rales, or rhonchi. GASTROINTESTINAL: Abdomen soft, BACK: No flank tenderness. EXTREMITIES: No gross deformities. NEURO: AOx4. Clear speech SKIN: Warm and dry PSYCH: Not anxious, is cooperative Initial Vital Signs Initial Vital Signs: Vital Signs Pulse Rate 72 04/03/25 08:02 Pulse Oximetry 100 04/03/25 08:02 Course Orders Ordered: ED Orders 04/03/25 07:58 XR chest 1V Stat EKG-12 Lead Stat 04/03/25 08:00 Complete Blood Count AUTO DIFF Stat Comprehensive Metabolic Panel Stat D Dimer Stat Magnesium Stat PTT Partial Thromboplastin Arnoldo Stat Prothrombin Time INR Stat Troponin I Stat 04/03/25 08:07 CT head/brain wo con Stat Vital Signs Vital signs: Vital Signs - 8 hr 04/03/25 08:02 04/03/25 08:04 04/03/25 08:04 Temperature Pulse Rate 72 70 Respiratory Rate Blood Pressure 149/86 H Pulse Oximetry 100 100 Oxygen Delivery Method 04/03/25 08:14 04/03/25 08:18 04/03/25 08:18 Temperature 98.6 F Pulse Rate 73 62 Respiratory Rate 17 10 L Blood Pressure 149/86 H 145/83 H Pulse Oximetry 97 99 Oxygen Delivery Method Room Air 04/03/25 08:30 04/03/25 08:31 04/03/25 08:31 Temperature Pulse Rate 64 67 Respiratory Rate 34 H Blood Pressure 154/70 H Pulse Oximetry 100 100 Oxygen Delivery Method 04/03/25 09:00 04/03/25 09:00 04/03/25 09:30 Temperature Pulse Rate 66 62 Respiratory Rate 32 H 18 Blood Pressure 144/87 H Pulse Oximetry 100 100 Oxygen Delivery Method 04/03/25 09:45 Temperature Pulse Rate 60 Respiratory Rate 11 L Blood Pressure 141/76 H Pulse Oximetry 100 Oxygen Delivery Method Room Air MDM - Chest Pain Lab Data 04/03/25 08:00 04/03/25 08:00 Labs: Lab Results 04/03/25 Range/Units 08:00 WBC 7.7 (4.5-11.0) X10^3/uL RBC 4.49 (4.0-5.2) X10^6/uL Hgb 14.5 (12.0-16.0) g/dL Hct 41.2 (36-46) % MCV 91.6 (80-100) fL MCH 32.3 (26-34) PG MCHC 35.3 (30-36) % RDW 13.1 (11.6-14.8) % Plt Count 344 (150-400) X10^3/uL Neut % (Auto) 65.7 (50-75) % Lymph % (Auto) 22.0 L (25-40) % [place] % (Auto) 9.3 (3-14) % Eos % (Auto) 2.6 (2-4) % Baso % (Auto) 0.4 (0-2) % Neut # (Auto) 5000 (6059-2945) /uL Lymph # (Auto) 1700 (7774-3242) /uL [place] # (Auto) 700 (0-900) /uL Eos # (Auto) 200 (0-450) /uL Baso # (Auto) 0 (0-100) /uL PT 11.1 (9.4-12.5) SECONDS INR 1.0 (0.9-1.3) APTT 31 (25.1-36.5) SECONDS D-Dimer 285 (<500) ng/ml Sodium 137 (137-145) mmol/L Potassium 4.4 (3.4-5.1) mmol/L Chloride 106 (98-107) mmol/L Carbon Dioxide 23 (22-32) mmol/L BUN 15 (7-17) mg/dL Creatinine 0.77 (0.52-1.04) mg/dL Estimated GFR > 60 (>60) mL/min BUN/Creatinine Ratio 19.5 (6-22) Glucose 110 H (70-99) mg/dL Calcium 9.4 (8.4-10.2) mg/dL Magnesium 2.3 (1.6-2.3) mg/dL Total Bilirubin 1.0 (0.2-1.3) mg/dL AST 28 (14-36) IU/L ALT 21 (<35) IU/L Alkaline Phosphatase 75 (38-126) U/L Troponin I < 0.012 (0.01-0.034) ng/mL Total Protein 7.9 (6.3-8.2) g/dL Albumin 4.6 (3.5-5.0) g/dL Globulin 3.3 (1.7-4.1) g/dL Albumin/Globulin Ratio 1.4 (1.0-2.8) Imaging Data CT scan - head: Radiologist's Impression: [place] [address] CT Scan Report Signed Patient: Eva Villalba MR#: [id number] : 1975 Acct:[id number] Age/Sex: 49 / F Date of Service: 04/03/25 Loc: ED Accession Number: [id number] Procedure: CT head/brain wo con Ordering Provider: Hilario Britt MD PROCEDURE: CT HEAD/BRAIN WO CON INDICATIONS: Dizziness TECHNIQUE: Noncontrast 4.5 mm thick angled axial sections acquired from the foramen magnum to the vertex, with coronal and sagittal reformats. For radiation dose reduction, the following was used: automated exposure control, adjustment of mA and/or kV according to patient size. COMPARISON: [facility], CT, CT HEAD/BRAIN WO CON, 03/07/2020, 16:02. FINDINGS: Image quality: Diagnostic. CSF spaces: Basal cisterns are patent. No extra-axial fluid collections. Ventricles are normal in size and shape. Brain: No midline shift. No intracranial mass effect or hemorrhage. Perea- white matter interface is normal. Skull and face: Calvarium and visualized facial bones are intact, without suspicious lesions. Sinuses: Previous paranasal sinus surgery. Visualized sinuses and mastoids are clear. IMPRESSION: No acute intracranial pathology. Dictated by: Werner Alexander M.D. on 04/03/2025 at 8:43 Approved by: Werner Alexander M.D. on 04/03/2025 at 8:44 Chest x-ray: Radiologist's Impression: [address] [address] XRay Report Signed Patient: Eva Villalba MR#: [id number] : 1975 Acct:[id number] Age/Sex: 49 / F Date of Service: 04/03/25 Loc: ED Accession Number: [id number] Procedure: XR chest 1V Ordering Provider: Hilario Britt MD PROCEDURE: XR CHEST 1V INDICATIONS: Palpitations TECHNIQUE: One view of the chest was acquired. COMPARISON: [facility], , XR CHEST 1V, 12/09/2018, 13:29. FINDINGS: Surgical changes and devices: Cardiac monitoring device. Lungs and pleura: Lungs are clear. No pleural effusions or pneumothorax. Mediastinum: Mediastinal contours appear normal. Heart size is normal. Bones and chest wall: No suspicious bony lesions. Overlying soft tissues appear unremarkable. IMPRESSION: No acute pulmonary process. Dictated by: Sofi Nash M.D. on 04/03/2025 at 8:30 Approved by: Sofi Nash M.D. on 04/03/2025 at 8:30 [facility] Narrative Medical decision making narrative: Patient has history of loop recorder that knees battery replaced next May. It has been in in operative for the past 6 months. Patient had history of 2nd degree heart block, cardiac ablation 2 or [address] Perkins, Cardiology [facility]. Has been doing well. She is on blood pressure medication. 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 No chest pain no palpitations no dyspnea no diaphoresis. No nausea. No syncope. She states it feels similar to when she had her arrhythmias. Her Apple watch recording shows sinus rhythm. Patient has no symptoms at this time. Blood sugar by EMS 95 MDM After history and exam, EKG troponin CBC see P D-dimer magnesium chest x-ray alarm security or surveillance monitor, CT head Differential considered: Includes but not limited to atrial fibrillation atrial flutter SVT third-degree block second-degree block vertigo TIA stroke Medical records reviewed: No recent visit here for this complaint, patient previous last name was Eva Salinas. Had cardiac ablation April 07, 2022 [facility], SVT was the preprocedure diagnosis. 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 Review of patient's procedural notes. Indication for ablation April 07, 2022 was for SVT Lab Test results independently reviewed as above. Pertinent findings: WBC 7.7 hemoglobin 14 hematocrit 41 sodium 137 potassium 4.4 BUN 15 creatinine 0.77 troponin less than 0.012 D-dimer 285 Independently reviewed EKG sinus rhythm rate 60 incomplete right bundle branch block. Imaging studies independently reviewed: CT head chest x-ray no acute finding Consultations: 9:16 a.m., I spoke with Cardiology [facility], dr sullivan, patient can be discharged home. Follow up with primary care for outpatient Zio patch. Follow up with Dr. Perkins after Zio patch. Re-evaluations: 9:17 a.m.. Patient asymptomatic. Reviewed results with patient. Reviewed with her ablation who was for SVT. She will need a Zio patch with her primary care and follow up with Dr. Perkins. She will make phone calls today. No new prescriptions are indicated. Discussion: Appropriate for discharge home. Exam is reassuring. Return precautions reviewed patient. Patient is cardiology team was contacted. Patient asymptomatic at time of discharge and during course of stay. Diagnosis: Dizziness/arrhythmia Discharge Plan Departure Patient Disposition: Home Clinical Impression: Dizziness Arrhythmia Qualifiers: Arrhythmia type: unspecified cardiac arrhythmia Qualified Code(s): I49.9 - Cardiac arrhythmia, unspecified Instructions: DI for Arrhythmias Activity Restrictions/Additional Instructions: Your exam EKG and imaging studies are reassuring as well as your laboratory studies. Cardiology from [facility] was contacted today. You will need to set up Zio patch with your primary care provider and follow up with Dr. Perkins. No new medications are indicated at this time. Return if worse if any questions or concerns. Work note has been provided for you. Prescriptions: No Action albuterol sulfate 2.5 MG/3 ML solution for nebulization Qty: 0 methotrexate sodium 2.5 MG tablet 10 mg PO QWEEK Qty: 0 folic acid 1 MG tablet 1 mg PO QDAY Qty: 0 cetirizine 10 MG tablet 10 mg PO Q DAY Qty: 0 fluticasone propion-salmeterol 500-50 mcg/dose blister with device 1 puff inhalation DIRECTED ketorolac 10 mg tablet 10 mg PO TID PRN (Reason: pain) Qty: 10 0RF Referrals: Dilcia Bedolla MD [Primary Care Provider, Family Practice] Stand Alone Forms: Patient Portal/API, Work Release Note
--- NOTE | 2025-04-03 08:06 | EKG_ITS ---
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
[2025-04-03 08:10] LABS: Add Manual Diff / Slide Review NO; Hematocrit 41.2 % (36-46); Hemoglobin 14.5 g/dL (12.0-16.0); Lymphocytes Absolute Auto 1700 /uL (1100-4500); Mean Corpuscular HGB Conc 35.3 % (30-36); Mean Corpuscular Hemoglobin 32.3 PG (26-34); Mean Corpuscular Volume 91.6 fL (80-100); Platelet Count 344 X10^3/uL (150-400)
[2025-04-03 08:15] LABS: INR 1.0 (0.9-1.3); Prothrombin Time 11.1 SECONDS (9.4-12.5)
[2025-04-03 08:18] LABS: PTT Partial Thromboplastin Tim 31 SECONDS (25.1-36.5)
[2025-04-03 08:19] LABS: Alanine Aminotransferase 21 IU/L (<35); Albumin 4.6 g/dL (3.5-5.0); Albumin Globulin Ratio 1.4 (1.0-2.8); Alkaline Phosphatase 75 U/L (38-126); Blood Urea Nitrogen 15 mg/dL (7-17); Calcium 9.4 mg/dL (8.4-10.2); Carbon Dioxide 23 mmol/L (22-32); Chloride 106 mmol/L (98-107); Estimated Glomerular Filt Rate > 60 mL/min (>60); Globulin 3.3 g/dL (1.7-4.1); Glucose 110 mg/dL (70-99); HEMOLYSIS < 15 (0-50); Magnesium 2.3 mg/dL (1.6-2.3); Potassium 4.4 mmol/L (3.4-5.1); Sodium 137 mmol/L (137-145); Total Protein 7.9 g/dL (6.3-8.2)
[2025-04-03 08:32] LABS: Troponin I < 0.012 ng/mL (0.01-0.034)
== END 2025-04-03 09:47 | disposition home or self-care (01) ==
PROVIDERS: Emergency Provider Emergency Medicine; PCP Family Medicine
DX: R42 Dizziness and giddiness (principal); R07.89 Other chest pain
CPT/HCPCS: 36415; 70450; 71045; 80053; 83735; 84484; 85025; 85379; 85610; 85730; 93005; 99283; 99284

== ENCOUNTER → 2025-04-09 09:49 | Outpatient (CLI) | payer OTHER, SELFPAY ==
[2025-04-09 10:14] LABS: Add Manual Diff / Slide Review NO; Hematocrit 38.3 % (36-46); Hemoglobin 13.3 g/dL (12.0-16.0); Lymphocytes Absolute Auto 1200 /uL (1100-4500); Mean Corpuscular HGB Conc 34.6 % (30-36); Mean Corpuscular Hemoglobin 32.1 PG (26-34); Mean Corpuscular Volume 92.8 fL (80-100); Platelet Count 300 X10^3/uL (150-400)
[2025-04-09 10:44] LABS: Alanine Aminotransferase 19 IU/L (<35); Albumin 4.2 g/dL (3.5-5.0); Albumin Globulin Ratio 1.5 (1.0-2.8); Alkaline Phosphatase 60 U/L (38-126); Blood Urea Nitrogen 16 mg/dL (7-17); Calcium 9.1 mg/dL (8.4-10.2); Carbon Dioxide 26 mmol/L (22-32); Chloride 104 mmol/L (98-107); Estimated Glomerular Filt Rate > 60 mL/min (>60); Globulin 2.8 g/dL (1.7-4.1); Glucose 101 mg/dL (70-99); HEMOLYSIS < 15 (0-50); Potassium 4.7 mmol/L (3.4-5.1); Sodium 137 mmol/L (137-145); Total Protein 7.0 g/dL (6.3-8.2)
[2025-04-09 11:48] LABS: Progesterone, Total 9.60 ng/mL
[2025-04-09 12:04] LABS: Estradiol, Total 181.7 pg/mL
[2025-04-09 23:36] LABS: Cholesterol,Total 108 mg/dL (100-199); HDL Cholesterol 57 mg/dL (>39); LDL Cholesterol Cal 38 mg/dL (0-99); Triglycerides 58 mg/dL (0-149)
== END ==
PROVIDERS: PCP Family Medicine; Referring Provider Specialist; Visit Provider Specialist
DX: Z51.81 Encounter for therapeutic drug level monitoring (principal); N95.9 Unspecified menopausal and perimenopausal disorder; R53.83 Other fatigue; R68.82 Decreased libido
CPT/HCPCS: 36415; 80053; 80061; 82670; 84144; 84270; 84403; 85025